=== PATIENT | female | born 1995 | race Caucasian/White ===

== ENCOUNTER 2024-08-13 13:51 | Outpatient (CLI) | payer OTHER, SELFPAY ==
[2024-08-13 15:05] LABS: Beta HCG Quantitative 135.72 mIU/ML
[2024-08-14 08:28] LABS: Progesterone 26.1 ng/mL
== END 2024-08-13 13:52 | disposition home or self-care (01) ==
LOC: ANHLAB 13:57
PROVIDERS: Visit Provider Obstetrics & Gynecology
DX: Z32.00 Encounter for pregnancy test, result unknown (principal); Z3A.00 Weeks of gestation of pregnancy not specified
CPT/HCPCS: 36415; 84144; 84702

== ENCOUNTER 2024-10-01 16:35 | Outpatient (CLI) | payer OTHER, SELFPAY ==
[2024-10-01 17:29] LABS: Basophils Percent Auto 0.3 % (0.2-1.2); Eosinophils Absolute Auto 0.2 K/mm3 (0-0.3); Eosinophils Percent Auto 1.4 % (0-4.4); Hematocrit 38.3 % (37.0-47.0); Hemoglobin 13.2 g/dL (12.0-15.0); Immature Granulocyte Absolute 0.03 K/mm3 (0.00-0.031); Immature Granulocyte Percent A 0.3 % (0-0.5); Lymphocytes Absolute Auto 2.32 K/mm3 (0.9-3.2); Lymphocytes Percent Auto 20.8 % (18.3-44.2); Mean Corpuscular HGB Conc 34.5 g/dl (32-36); Mean Corpuscular Hemoglobin 30.5 pg (26-34); Mean Corpuscular Volume 88.5 fl (80-100); Mean Platelet Volume 10.8 fl (7.4-10.4); Monocytes Absolute Auto 0.7 K/mm3 (0.1-0.6); Monocytes Percent Auto 5.9 % (2.6-8.5); Neutrophils Percent Auto 71.3 % (45.5-73.1); Platelet Count Result 276 k/mm3 (150-375); Red Blood Count 4.33 M/mm3 (4.2-5.4); Red Cell Distribution Width 12.5 % (11.5-14.5); White Blood Count 11.2 K/mm3 (4.5-10.0)
[2024-10-01 18:15] LABS: Iron 68 ug/dL (37-170)
[2024-10-01 18:24] LABS: HIV 1/2 Ab P24 Ag Result Negative (Negative)
[2024-10-01 18:34] LABS: Vitamin D 25 Hydroxy 35.5 ng/mL
[2024-10-01 18:50] LABS: Rubella IgG Antibody 25.8 IU/ML
[2024-10-01 19:08] LABS: Hepatitis B Surface Anti Res Positive
[2024-10-02 07:14] LABS: Rapid Plasma Reagin Non-Reactive (NonReactive)
== END 2024-10-01 16:36 | disposition home or self-care (01) ==
LOC: ANHLAB 16:38
PROVIDERS: Visit Provider Obstetrics & Gynecology
DX: Z34.80 Encounter for supervision of other normal pregnancy, unspecified trimester (principal)
CPT/HCPCS: 36415; 82306; 83540; 85025; 86592; 86703; 86706; 86762; 86850; 86900; 86901; G0432

== ENCOUNTER 2024-10-02 14:20 | Outpatient (CLI) | payer OTHER, SELFPAY ==
[2024-10-03 22:44] LABS: Amphetamines NEGATIVE ng/mL (<500); Barbiturates NEGATIVE ng/mL (<300); Benzodiazepines NEGATIVE ng/mL (<100); Cocaine Metabolite NEGATIVE ng/mL (<150); Marijuana Metabolite NEGATIVE ng/mL (<20); Methadone Metabolite NEGATIVE ng/mL (<100); Opiates NEGATIVE ng/mL (<100); Oxidant NEGATIVE mcg/mL (<200); PCP NEGATIVE ng/mL (<25); pH 6.8 (4.5-9.0)
== END 2024-10-02 14:21 | disposition home or self-care (01) ==
LOC: ANHLAB 14:21
PROVIDERS: Visit Provider Obstetrics & Gynecology
DX: Z34.80 Encounter for supervision of other normal pregnancy, unspecified trimester (principal)
CPT/HCPCS: 80307; 87086

== ENCOUNTER 2025-01-24 07:12 | Outpatient (CLI) | payer OTHER, SELFPAY ==
[2025-01-24 08:37] LABS: Hematocrit 36.2 % (37.0-47.0); Hemoglobin 11.8 g/dL (12.0-15.0)
[2025-01-24 10:59] LABS: Syphilis IgG/IgM Antibody Negative (Negative)
[2025-01-24 11:10] LABS: Glucose 1 Hour PP 50gm Dose 128 mg/dL
[2025-01-24 11:36] LABS: HIV 1/2 Ab P24 Ag Result Negative (Negative)
== END 2025-01-24 07:13 | disposition home or self-care (01) ==
LOC: ANHLAB 07:14
PROVIDERS: Visit Provider Obstetrics & Gynecology
DX: Z34.80 Encounter for supervision of other normal pregnancy, unspecified trimester (principal)
CPT/HCPCS: 36415; 82947; 85014; 85018; 86593; 86703; G0432

== ENCOUNTER 2025-04-17 10:58 | Inpatient (IN) | payer OTHER, SELFPAY ==
[2025-04-17] VITALS (66 sets, daily range): BP systolic 95–154; BP diastolic 43–136; PULSE 59–190; RESP 18; TEMP 36.1–37.1; O2SAT 81–100; BMI 34.0
--- NOTE | 2025-04-17 10:21 | PM.IMHP ---
H&P: HPI History of Present Illness Date/Time: 04/17/25 10:21 Chief Complaint: Term Narrative: This is a 29-year-old 1 para 0 whose last menstrual period was 07/06/2024, EDC is 04/20/2025 confirmed by early ultrasound presents at 39 and half weeks gestation for induction of labor her cervix is favorable she is negative for group B strep has been otherwise uncomplicated Review of Systems Review of Systems: All systems reviewed & are unremarkable except as noted in HPI and below PMFSH Family History Family History Father Hypertension Diabetes mellitus Social History Social History Substance use: never Spiritual care concerns: No Meds Home Medications and Allergies Home Medications ?Medication ?Instructions ?Recorded ?Confirmed ?Type ysbkejsr-jlg-On-FA 1 mg tablet PO 03/22/25 History tablet Allergies Allergy/AdvReac Type Severity Reaction Status Date / Time cefazolin (From Anc) Allergy Severe Anaphylaxis Verified 03/22/25 14:14 Exam Const: General: cooperative, healthy appearing and comfortable Nutritional Appearance: average body habitus Orientation/consciousness: oriented to person, oriented to place and oriented to time Resp: Effort & Inspection: normal respiratory effort Cardio: Rate: regular rate Rhythm: regular rhythm Heart sounds: S1 normal heart sound present and S2 normal heart sound present GI: Inspection: normal to inspection (Gravid soft uterus) : External Female Exam: normal external appearance Speculum Exam - Vagina: normal appearance of the vagina Speculum Exam - Cervix: normal appearance of the cervix (Cervix 3/75/2) Assessment and Plan Assessment and plan (1) Term : Code(s): Z34.90 - Encounter for supervision of normal , unspecified, unspecified trimester Status: Acute Plan Medical induction of labor. Spontaneous vent expected. She is an epidural candidate
--- NOTE | 2025-04-17 11:50 | LDADM ---
This patient, Angela Cr, was admitted to Labor/Delivery/Recovery 106 on 04/17/25 at 10:58. Plans for labor, pain management and were discussed with patient. Patient/family oriented to hospital policies and general routines including ID bracelet, bed and alarms, visiting hours, pain management, procedures, bathroom and other care routines, personal items, smoking policy, room service/diet and guest tray routines, security routines, and visiting hours. Patient/Family are encouraged to report perceived risks to care and to ask questions if they do not understand what they are told or what they should do. See OBIX for further documentation.
--- NOTE | 2025-04-17 11:57 | PM.OBPNLAB ---
Pain Control Date/time seen: 04/17/25 11:57 Pain control: tolerating well Pelvic Exam Dilation (cm): 3 Effacement (%): 75 station: -2 Amniotic membrane status: Leaking
[2025-04-17 12:01] LABS: Hematocrit 35.5 % (37.0-47.0); Hemoglobin 11.2 g/dL (12.0-15.0); Immature Granulocyte Percent A 0.7 % (0-0.5); Lymphocytes Absolute Auto 1.66 K/mm3 (0.9-3.2); Mean Corpuscular HGB Conc 31.5 g/dl (32-36); Mean Corpuscular Hemoglobin 26.1 pg (26-34); Mean Corpuscular Volume 82.8 fl (80-100); Nucleated Red Blood Cells Absolute Auto 0.000 K/mm3 (0.0-0.012); Nucleated Red Blood Cells Perc 0.0 % (0.0-0.2); Platelet Count Result 221 k/mm3 (150-375); Red Blood Count 4.29 M/mm3 (4.2-5.4); White Blood Count 9.1 K/mm3 (4.5-10.0)
[2025-04-17] MEDS: LACTATED RINGERS 1,000 ML 125 ML IV CONT (12:08)
[2025-04-17] MEDS: OXYTOCIN 30 UNITS/NS 500 ML 30 UNITS/500 ML BAG 6 UNITS IV CONT (12:15)
[2025-04-17 12:54] LABS: Syphilis IgG/IgM Antibody Non-Reactive (Nonreactive)
[2025-04-17 12:59] LABS: Hepatitis B Surface Antigen Negative (Negative)
--- NOTE | 2025-04-17 15:07 | WPDANESEPPF ---
Anes - Initial Pre Proc Eval Procedure: labor epidural Date/Time: 04/17/25 15:07 Surgeon: Richar Zamora MD Pre Op Diagnosis: labor pain Pre Op Diagnosis: iol Patient Data Age: 29 Gender: F Height: 1.68 m Weight: 95.5 kg Last Vital Signs Temp 36.8 C 04/17/25 11:30 Pulse 70 04/17/25 15:00 Resp 18 04/17/25 11:30 BP 142/72 H 04/17/25 15:00 O2 Del Method Room Air 04/17/25 11:50 Allergies Allergy/AdvReac Type Severity Reaction Status Date / Time cefazolin (From [facility]) Allergy Severe Anaphylaxis Verified 04/17/25 12:32 Home Medications ?Medication ?Instructions ?Recorded ?Confirmed ?Type lxvxuipm-xyy-Hc-FA 1 mg 1 tablet PO DAILY 03/22/25 04/17/25 History tablet Laboratory Tests 04/17/25 11:26 WBC 9.1 K/mm3 (4.5-10.0) RBC 4.29 M/mm3 (4.2-5.4) Hgb 11.2 L g/dL (12.0-15.0) Hct 35.5 L % (37.0-47.0) MCV 82.8 fl (80-100) MCH 26.1 pg (26-34) MCHC 31.5 L g/dl (32-36) RDW 14.7 H % (11.5-14.5) Plt Count 221 k/mm3 (150-375) MPV 11.6 H fl (7.4-10.4) Immature Gran % (Auto) 0.7 H % (0-0.5) Neut % (Auto) 67.7 % (45.5-73.1) Lymph % (Auto) 18.2 L % (18.3-44.2) [place] % (Auto) 8.0 % (2.6-8.5) Eos % (Auto) 5.1 H % (0-4.4) Baso % (Auto) 0.3 % (0.2-1.2) Lymph # (Auto) 1.66 K/mm3 (0.9-3.2) [place] # (Auto) 0.7 H K/mm3 (0.1-0.6) Eos # (Auto) 0.5 H K/mm3 (0-0.3) Baso # (Auto) 0.0 K/mm3 (0.0-0.1) Abs Immat Gran (auto) 0.06 H K/mm3 (0.00-0.031) Absolute Neuts (auto) 6.2 K/mm3 (1.3-6.7) Absolute Nucleated RBC 0.000 K/mm3 (0.0-0.012) Nucleated RBC % 0.0 % (0.0-0.2) Syphilis IgG/IgM Ab Non-reactive (Nonreactive) Hep Bs Antigen Negative (Negative) Blood Type O Positive Antibody Screen Negative Patient hx anesthesia problems: none Family hx anesthesia problems: none Results Review: All pre-operative results and documents have been reviewed as part of the pre-operative evaluation. [facility] Family History Family History Father Diabetes mellitus Hypertension Brain malignancy Social History Social History Smoking status: Never smoker Second hand tobacco smoke exposure: No Substance use: never Do You Feel Safe in your Home?: Yes Lack of Transportation: No Lack of Food: Never True Current Housing: I Have Housing Concerned About Future Housing: YES Difficulty Paying Gas/Electric Bills: YES Difficulty Paying for Meds: YES Currently Unemployed: No Education: Bachelor's Degree Difficulty w/ Childcare or Family Care: No Spiritual care concerns: No Anes - Eval Final PreProcedure Day of Procedure 04/17/25 15:07 Patient weight: normal Heart: regular rate and rhythm Lungs: clear to auscultation Airway: Mallampati scale class II Neurological: alert and oriented Last oral intake: >/= 8 hours ASA classification: II Emergent: no Anesthetic plan: proceed Anesthesia type and monitoring: regional epidural Results Review: All pre-operative results and documents have been reviewed as part of the pre-operative evaluation. Informed Consent: The patient's anesthetic plan and its attendant risks and benefits were discussed with the patient/family/POA. Questions were solicited and answers provided to the satisfaction of the patient/family/POA.
--- NOTE | 2025-04-17 17:06 | PM.OBPRVD ---
OB - Vaginal Delivery Note Procedure Delivery date: 04/17/25 Events: Elective Induction of Labor Induction method: AROM Delivery augmentation: Pitocin Delivery monitor: External FHT and External Uterine Route of delivery: Episiotomy description: None Laceration Description: Perineal - 1st Degree Delivery repair: vicryl Specimen: No Quantitative Blood Loss (ml): 62 Anesthesia type: Local Disposition: Floor Complications: No immediate complications Narrative: Patient was admitted for induction of labor artificial rupture membranes performed 1st beginning in the morning risks unremarkable 1st stage of later had an epidural which did not take was turned off she pushed delivered the head spontaneously in the AARON position. Anterior posterior shoulder delivered spontaneously. Cord clamped and cut passed off the table with an excellent cry. Placenta delivered i intact spontaneously. Twenty of Pitocin placed IV to help firm the uterus after inspecting the vagina small right left lateral wall laceration was noted the xjrrwd-kj-xsmod suture was placed after putting 2cc 1% xylocaine anesthesia in the vagina QBL was 62cc. Mom and baby doing fine at the time of dictation [place] Baby Date of : 04/17/25 Time of : 16:53 Gestational Age by Date: 39 Infant gender: Male presentation: vertex position: Right Occiput Anterior Placenta delivery description: Spontaneous Cord Vessel Description: 3 Vessels
--- NOTE | 2025-04-17 17:08 | P.DS_ITS ---
DS: Admitting Diagnosis Discharge Date 04/19/2025 Admitting Diagnosis Term DS: Discharge Diagnosis Discharge Diagnosis (1) Term : Code(s): Z34.90 - Encounter for supervision of normal , unspecified, unspecified trimester Status: Acute DS: Summary Hospital Course Reason for hospitalization: Patient was admitted for induction labor on 04/17/2025 underwent spontaneous vaginal delivery Hospital Course: Patient's hospital course unremarkable. She remained afebrile. She was up, voiding without difficulty, eating regular, ambulating, and generally without complaints. Time Spent with Patient Time attestation: Total time spent providing and/or coordinating discharge services: Exam Const: General: cooperative, healthy appearing and comfortable Nutritional Appearance: average body habitus Orientation/consciousness: oriented to person, oriented to place and oriented to time Resp: Effort & Inspection: normal respiratory effort Cardio: Rate: regular rate Rhythm: regular rhythm Heart sounds: S1 normal heart sound present and S2 normal heart sound present GI: Inspection: normal to inspection (Gravid soft uterus) : External Female Exam: normal external appearance Speculum Exam - Vagina: normal appearance of the vagina Speculum Exam - Cervix: normal appearance of the cervix (Cervix 3/75/2) DS: Data Data Completed and Pending Labs on day of discharge: Labs from last 24 hours 04/17/25 11:26 WBC 9.1 RBC 4.29 Hgb 11.2 L Hct 35.5 L MCV 82.8 MCH 26.1 MCHC 31.5 L RDW 14.7 H Plt Count 221 MPV 11.6 H Immature Gran % (Auto) 0.7 H Neut % (Auto) 67.7 Lymph % (Auto) 18.2 L [place] % (Auto) 8.0 Eos % (Auto) 5.1 H Baso % (Auto) 0.3 Lymph # (Auto) 1.66 [place] # (Auto) 0.7 H Eos # (Auto) 0.5 H Baso # (Auto) 0.0 Abs Immat Gran (auto) 0.06 H Absolute Neuts (auto) 6.2 Absolute Nucleated RBC 0.000 Nucleated RBC % 0.0 Syphilis IgG/IgM Ab Non-reactive Hep Bs Antigen Negative Blood Type O Positive Antibody Screen Negative Discharge Plan Discharge Attending physician on discharge: Richar Dow Discharging Clinician: Mary Giordano Patient Disposition: Home Activity: may shower, no straining and pelvic rest Diet: heart healthy Wound Care Instructions: follow printed instructions Discharge Instructions: Education: Mom and Baby Guide Given to: Mother Follow-Up: Call your delivering provider's office for an appointment to be seen in: 6 Weeks Mom and baby should come to the [facility] for the follow-up appointment. Appointment Date/Time: April 20, 2025 at 1:30 pm What to expect at your follow-up visit: Blood Pressure Check Physical Assessment Call [phone] if you are unable to keep your appointment time. BREAST CARE: * Wear a snug supportive bra. * For engorgement discomfort: Breast Feeding: * Apply warm moist washcloths * Express milk as needed to relieve engorgement * Wear loose clothing Bottle Feeding: * May apply ice packs * For sore nipples: * Identify correct latch-on * Apply warm moist washcloths before and after nursing * Air dry nipples after nursing * May apply Lansinoh cream to nipples EPISIOTOMY/PERINEAL CARE: * Until bleeding stops, use your aaliyah bottle after urinating * Change your pad frequently throughout the day * You may take sitz baths several times a day (fill your bathtub with warm water and soak for 20 minutes.) Do NOT bathe in the water * No tub baths until seen by your physician - You may shower ACTIVITY: * Rest as much as possible. * Do not exercise or lift anything heavier than your baby (such as laundry or other children.) * Avoid stairs or driving as much as possible. * Do not put anything into the vagina. No douching, tampons, or sexual activity until seen by physician. NOTIFY PHYSICIAN IF YOU HAVE ANY QUESTIONS OR IF ANY OF THE FOLLOWING SYMPTOMS OCCUR: * If your episiotomy or incision becomes red, swollen, or more painful than what you have experienced in the hospital. * If your vaginal bleeding becomes foul smelling. * If your vaginal bleeding becomes more heavy than a period or if your bleeding changes from pink to bright red. However, you may pass an occasional walnut- sized clot once or twice for the first week . * If you experience a sharp, shooting pain in you calves. * If you discover a hard, reddened area on your breast or if you experience flu- like symptoms. DIET: * Eat regular, well-balanced meals. * Drink plenty of fluids daily. If , drink to thirst. Patient Language: Czech Stand Alone Forms: General Discharge Information Follow-up/Referrals: Richar Dow MD [Physician] - Discharge Medications: Continued cnqaqmxd-ync-Rs-FA 1 mg tablet 1 tablet PO DAILY Date of admission: 04/17/25 10:58 Primary Care Provider: PHYSICIAN,GAS FITTER HELPER Admitting Provider: Richar Dow Attending physician on admission: Richar Dow Condition: Stable
[2025-04-17] MEDS: OXYTOCIN 30 UNITS/NS 500 ML 30 UNITS/500 ML BAG 125 UNITS IV CONT (17:29)
[2025-04-17] MEDS: IBUPROFEN 600 MG TABLET PO (18:36)
[2025-04-18 04:58] LABS: Hematocrit 34.8 % (37.0-47.0); Hemoglobin 10.8 g/dL (12.0-15.0)
--- NOTE | 2025-04-18 06:44 | P.PNOB_ITS ---
OB - PN: Subj Subjective Date/time seen: 04/18/25 06:44 Patient comments: no complaints, pain well controlled and tolerating diet [place] baby status: doing well OB - PN: Obj Data Labs 04/18/25 04:16 Labs: Laboratory Results - last 24 hr 04/17/25 04/18/25 11:26 04:16 WBC 9.1 RBC 4.29 Hgb 11.2 L 10.8 L Hct 35.5 L 34.8 L MCV 82.8 MCH 26.1 MCHC 31.5 L RDW 14.7 H Plt Count 221 MPV 11.6 H Immature Gran % (Auto) 0.7 H Neut % (Auto) 67.7 Lymph % (Auto) 18.2 L [place] % (Auto) 8.0 Eos % (Auto) 5.1 H Baso % (Auto) 0.3 Lymph # (Auto) 1.66 [place] # (Auto) 0.7 H Eos # (Auto) 0.5 H Baso # (Auto) 0.0 Abs Immat Gran (auto) 0.06 H Absolute Neuts (auto) 6.2 Absolute Nucleated RBC 0.000 Nucleated RBC % 0.0 Syphilis IgG/IgM Ab Non-reactive Hep Bs Antigen Negative Blood Type O Positive Antibody Screen Negative OB - PN A/P Assessment and Plan (1) Term : Code(s): Z34.90 - Encounter for supervision of normal , unspecified, unspecified trimester Status: Acute Plan Comments: routine care Time Spent With Patient Time: Total time spent is greater than 50% in coordination of care (as documented) at patient's floor/unit and/or counseling patient: Review of Systems 2 Review of Systems: All systems reviewed & are unremarkable except as noted in HPI and below Exam 2 Const: General: cooperative, healthy appearing and comfortable Nutritional Appearance: average body habitus Orientation/consciousness: oriented to person, oriented to place and oriented to time Resp: Effort & Inspection: normal respiratory effort Cardio: Rate: regular rate Rhythm: regular rhythm Heart sounds: S1 normal heart sound present and S2 normal heart sound present GI: Inspection: normal to inspection (Gravid soft uterus) : External Female Exam: normal external appearance Speculum Exam - Vagina: normal appearance of the vagina Speculum Exam - Cervix: normal appearance of the cervix (Cervix 3/75/2)
[2025-04-18 07:20] VITALS: BP 127/82; PULSE 64; RESP 16; TEMP 36.6; O2SAT 99
[2025-04-18 08:00] VITALS: PULSE 64; RESP 16; O2SAT 99
--- NOTE | 2025-04-18 08:25 | PC.NURSE ---
Introductions made and we discussed plan of care for today. Mom is feeling that baby's latch is shallow and could be deeper. She notices that baby does not open his mouth very wide and just suckles at the nipple tip. Baby was just circumcised this morning and has been sleepy since. Mom states that it is time to try to feed baby and we undressed him and attempted to latch. He did not offer a gape and did not root or attempt to latch. Mom is encouraged to give him some time and to try again if she notices any feeding cues. Suggested skin to skin. Father present and supportive. Patient agrees to call out for assistance with feeding today. Primary RN updated.
[2025-04-18] MEDS: DOCUSATE SODIUM 100 MG CAPSULE PO (09:12)
[2025-04-18] MEDS: MULTIVIT/MIN/PREN/FOL AC/IRON TABLET 1 TAB PO (09:12)
--- NOTE | 2025-04-18 11:30 | PC.NURSE ---
Patient called out to request feeding assistance. Baby is still very sleepy and mom is concerned that he hasn't woken to eat. She had 3ml of expressed colostrum that she gave to baby. We attempted to wake him by undressing, stimulating, and changing positions. He did not wake or give feeding cues. Mom is worried about his blood sugar dropping so we obtained a bedside glucose of 67. Mom was reassured that baby is well and just needs some time to recover from the circumcision. After the blood sugar, baby was awake and looking around. He looks like he will be ready to eat soon. Mom holds her breast well and holds baby in cross cradle position. Encouraged mom that she is doing all the right things and that baby will wake up and feed. Mom will call out for any additional questions, concerns, or assistance needed. Primary RN updated.
[2025-04-18 12:16] VITALS: BP 127/71; PULSE 78; RESP 18; TEMP 37.7; O2SAT 97
--- NOTE | 2025-04-18 14:15 | WPDANLDPN2 ---
Anes-Prog Note L&D Date/Time: 04/18/25 14:15 Neuro status: Neuro function grossly intact. Cardiovascular status: normal Respiratory status: normal Airway patency: baseline Mental status: baseline Vital Signs: Last Vital Signs Temp 37.7 C H 04/18/25 12:16 Pulse 78 04/18/25 12:16 Resp 18 04/18/25 12:16 BP 127/71 04/18/25 12:16 Pulse Ox 97 04/18/25 12:16 O2 Del Method Room Air 04/18/25 08:00 Pain score (VAS): 0 I/O: Intake & Output 04/17/25 04/18/25 04/18/25 23:59 07:59 15:59 Intake Total 500 Output Total 422 Balance 78 Patient feedback: Patient satisfied with anesthetic care.
[2025-04-18] MEDS: IBUPROFEN 600 MG TABLET PO (17:52)
[2025-04-18 20:00] VITALS: BP 115/63; PULSE 63; RESP 16; TEMP 36.6; O2SAT 100
[2025-04-19 09:00] VITALS: BP 115/70; PULSE 67; RESP 18; TEMP 36.6; O2SAT 97
--- NOTE | 2025-04-19 10:47 | P.PNOB_ITS ---
OB - PN: Subj Subjective Date/time seen: 04/19/25 10:47 Patient comments: no complaints and pain well controlled baby status: doing well OB - PN: Obj Data Labs 04/18/25 04:16 OB - PN A/P Plan day: 2 Plan: routine care and discharge home Time Spent With Patient Time: Total time spent is greater than 50% in coordination of care (as documented) at patient's floor/unit and/or counseling patient: Exam 2 : Bimanual exam- vagina & uterus: other (Uterus firm, nt @U)
[2025-04-20 13:46] VITALS: BP 123/75; PULSE 76; RESP 16; TEMP 36.5; O2SAT 100
== END 2025-04-19 12:07 | disposition home or self-care (01) | DRG 807 ==
LOC: ANHLDR 04-23 06:32 → ANHOB2 04-23 06:32
PROVIDERS: Admitting Provider Obstetrics & Gynecology; Visit Provider Obstetrics & Gynecology Gynecology
DX: O70.0 First degree perineal laceration during delivery (principal); Z37.0 Single live birth; Z3A.39 39 weeks gestation of pregnancy
CPT/HCPCS: 36415; 85014; 85018; 85025; 86593; 86850; 86900; 86901; 87340; A9270; J2590; J2795; J7120

== ENCOUNTER 2025-05-08 13:02 | Outpatient (RCR) | payer OTHER, SELFPAY ==
--- NOTE | 2025-05-08 15:58 | PC.NURSE ---
In- 1305 Out- 1345 Reason for visit: Latch Difficulties (Shallow Latch), Disorganized Suck History: Mother is a 29-year-old , delivered baby boy Huan vaginally at 39/5 by IOL. Baby has been nursing well with the exception of occasional painful feedings which leave mothers nipples feeling sore. Mother attempts to give 1 bottle in the middle of the night of expressed breast milk which has not been going well. Infant will refuse the bottle. Different brands and nipples have been offered without success. Otherwise, infant is exclusively breast feeding. After is satisfied and feeding is complete, mother states that she sometimes feels like she is still full and needs to pump off the excess for comfort. is satisfied after feedings and nurses approximately every 2 hours for 20 minutes total. When mother pumps after infant nurses she states that she gets approximately 4oz. per breast. History: Huan is a well appearing 21 day old . He is easy to wake to feed and nurses well. Output is WNL per mother. Observations: Angela does a great job positioning infant for feedings. When putting infant was placed to the breast his initial latch was shallow and clicking noises were noted with cheek dimpling. Angela stated that this is usual for him to slip off on to only the tip of the nipple which cases her a painful pinching sensation. I demonstrated how to un-latch infant and establish a deeper latch. Once infant latched with the deeper latch he was able to maintain latch without pain to Angela and nursed for approximately 15 minutes. Once infant completed nursing on the left breast he was satisfied. weight: 7lb 1oz Last weight: 9lb 2oz (today) Plan of Care: Discussed with Angela the importance of a deep latch to ensure efficient milk transfer, protects her nipples, and help establish a healthy milk supply. Encouraged Angela to offer a bottle during the day to see if Huan would become less frustrated than offering the bottle in the middle of the night when he is notably fussier. Follow up plans: Follow up with Aviation Ordnance Officer as scheduled. RN will call to follow up with Angela on 05/10/25.
--- NOTE | 2025-05-13 14:15 | PC.NURSE ---
1410. Called Angela for follow up phone call from from out outpatient appointment 05/08. Introductions were made, then consulted with patient to assess needs related to . Angela reports that she has noticed an improvement in her latch and feedings. She states she doesn't have any pain and is able to get a deeper latch than previously able. She reports no questions or concerns at this time. Advised her to call back for any future issues or questions. Mother voiced understanding of information and will call if there is a request for assistance.
== END 2025-08-06 23:59 | disposition home or self-care (01) ==
LOC: ANHOBOP 13:02
PROVIDERS: Visit Provider Pediatrics
DX: Z39.1 Encounter for care and examination of lactating mother (principal)
CPT/HCPCS: 99212; G0463